=== PATIENT | female | born 1955 | race Caucasian/White ===

== ENCOUNTER 2016-10-02 18:23 | Emergency (ER) | payer MEDICARE, BC ==
[2010-03-25 12:30] VITALS: BMI 29.1
== END 2016-10-02 22:41 | disposition home or self-care (01) ==
LOC: D.ER 18:23
DX: S00.03XA Contusion of scalp, initial encounter (principal); W20.8XXA Other cause of strike by thrown, projected or falling object, initial encounter; Y93.89 Activity, other specified; Y92.010 Kitchen of single-family (private) house as the place of occurrence of the external cause; S00.01XA Abrasion of scalp, initial encounter; F03.90 Unspecified dementia, unspecified severity, without behavioral disturbance, psychotic disturbance, mood disturbance, and anxiety; K21.9 Gastro-esophageal reflux disease without esophagitis; I10 Essential (primary) hypertension; G25.81 Restless legs syndrome

== ENCOUNTER → 2017-11-22 19:20 | Outpatient (CLI) | payer MEDICARE ==
[2010-03-25 12:30] VITALS: BMI 29.1
== END | disposition home or self-care (01) ==
LOC: D.MAMMO 10:15
DX: Z12.31 Encounter for screening mammogram for malignant neoplasm of breast (principal)

== ENCOUNTER → 2019-04-21 13:34 | Outpatient (CLI) | payer MEDICARE ==
[2010-03-25 12:30] VITALS: BMI 29.1
== END | disposition home or self-care (01) ==
LOC: D.CT 13:30
PROVIDERS: ATTEND Internal Medicine Gastroenterology
DX: R14.0 Abdominal distension (gaseous) (principal); R10.9 Unspecified abdominal pain; K52.9 Noninfective gastroenteritis and colitis, unspecified

== ENCOUNTER → 2019-06-06 08:21 | Outpatient (CLI) | payer MEDICARE ==
[2010-03-25 12:30] VITALS: BMI 29.1
== END | disposition home or self-care (01) ==
LOC: D.CT 08:21
PROVIDERS: ATTEND Internal Medicine Gastroenterology
DX: K55.039 Acute (reversible) ischemia of large intestine, extent unspecified (principal)